=== PATIENT | male | born 1985 | race Asian ===

== ENCOUNTER → 2018-07-02 | Outpatient (CLI) | payer OTHER ==
--- NOTE | 2018-07-02 12:29 | DIAGNOSTIC IMAGING REPORT ---
CHEST 2 VIEWS ROUTINE HISTORY: COUGH COMPARISON: None. FINDINGS: The lungs are clear. Cardiac silhouette is normal in size. No pleural effusions. No pneumothorax. IMPRESSION: No acute process. Electronically signed by: Ky Wilburn M.D. 07/02/2018 12:28 PM Dictated Date/Time: 07/02/2018 12:25 PM
== END | disposition home or self-care (01) ==
LOC: C.RAD1850 11:58
PROVIDERS: ATTEND Student in an Organized Health Care Education/Training Program
DX: R05 Cough (principal)